=== PATIENT | female | born 1980 | race Caucasian/White ===

== ENCOUNTER 2021-10-28 23:33 | Emergency (ER) | payer BC | END 2021-10-29 01:27 | disposition home or self-care (01) | LOC: DL.ED 23:33 | DX: M25.572 Pain in left ankle and joints of left foot (principal); E03.9 Hypothyroidism, unspecified; Z88.1 Allergy status to other antibiotic agents; Z79.899 Other long term (current) drug therapy | CPT/HCPCS: 73610-LT; 99283 ==

== ENCOUNTER 2021-12-12 21:12 | Emergency (ER) | payer BC | END 2021-12-12 23:22 | disposition home or self-care (01) | LOC: DL.ED 21:12 | DX: M79.651 Pain in right thigh (principal); E03.9 Hypothyroidism, unspecified; Z88.6 Allergy status to analgesic agent; Z79.899 Other long term (current) drug therapy | CPT/HCPCS: 36415; 80053; 85025; 85379; 93971; 99283; 99284 ==

== ENCOUNTER 2023-08-28 16:00 | Emergency (ER) | payer BC ==
[2023-08-28] MEDS: Sodium Chloride 0.9% 1,000 ML IV ONE (16:42)
[2023-08-28] MEDS: Sodium Chloride 0.9% 10 ML Syringe FLUSH PRN (16:42)
[2023-08-28 16:47] LABS: BASOPHILS PERCENT AUTO 0.2 % (0.0-1.0); EOSINOPHILS PERCENT AUTO 0.6 % (1.0-3.0); HEMATOCRIT 43.5 % (37.0-47.0); HEMOGLOBIN 14.5 g/dL (12.0-16.0); LYMPHOCYTES PERCENT AUTO 29.7 % (20.5-50.1); MEAN CORPUSCULAR HEMOGLOBIN 29.1 pg (27.0-34.0); MEAN CORPUSCULAR HGB CONC 33.3 g/dL (33.0-35.0); MEAN CORPUSCULAR VOLUME 87.2 fL (80-100); MONOCYTES PERCENT AUTO 7.4 % (2-8); NEUTROPHILS PERCENT AUTO 62.1 % (42.2-75.2); PLATELET COUNT,PLT 286 10^3/uL (150-450); RED BLOOD CELL COUNT 4.99 10^6/uL (4.2-5.4); WHITE BLOOD CELL COUNT,WBC 8.1 10^3/uL (5.0-10.0)
[2023-08-28 17:02] LABS: LACTIC ACID 1.6 mmol/L (0.4-2.0)
[2023-08-28 17:07] LABS: A/G RATIO 0.9; ALANINE AMINOTRANSFERASE,ALT 18 U/L (14-59); ALBUMIN 3.8 g/dL (3.4-5.0); ALKALINE PHOSPHATASE 114 U/L (46-116); ANION GAP 11.7 mEq/L (7-13); ASPARTATE AMNIOTRANSFERASE,AST 13 U/L (15-37); BILIRUBIN TOTAL 0.3 mg/dL (0.2-1.0); BLOOD UREA NITROGEN,BUN 10 mg/dL (7-18); BUN/CREATININE RATIO 12.5 (No establ ref range); C-REACTIVE PROTEIN 0.57 ng/dL (<=0.50); CALCIUM 9.2 mg/dL (8.5-10.1); CARBON DIOXIDE,CO2 29 mmol/L (21-32); CHLORIDE,CL 106 mmol/L (98-107); EST CRCL DRUG DOSING (CG) 101.08 mL/min; GLUCOSE RANDOM 76 mg/dL (70-99); MAGNESIUM 2.2 mg/dL (1.8-2.4); POTASSIUM,K 3.7 mmol/L (3.5-5.1); PROTEIN TOTAL,TP 7.8 g/dL (6.4-8.2); PROTHROMBIN TIME 9.9 SEC (9.0-12.0); PTT,PARTIAL THROMBOPLSTIN TIME 25.7 SEC (22.0-34.0); SODIUM,NA 143 mmol/L (136-145); TSH ULTRASENSITIVE 0.66 uIU/mL (0.36-3.74)
[2023-08-28] MEDS: Meclizine 12.5 MG Tab PO ONE ×2 (17:26→18:12)
[2023-08-28] MEDS: Ketorolac 30 MG/ML SDV IVPUSH ONE (17:29)
[2023-08-28 17:59] LABS: ESTIMATED GFR 95 mL/min (>=60); ETHANOL BLOOD MEDICAL < 3 mg/dL (0)
== END 2023-08-28 18:20 | disposition home or self-care (01) ==
LOC: DL.ED 16:00
DX: R55 Syncope and collapse (principal); R51.9 Headache, unspecified; E03.9 Hypothyroidism, unspecified; Z88.6 Allergy status to analgesic agent; Z79.890 Hormone replacement therapy; Z79.899 Other long term (current) drug therapy
CPT/HCPCS: 36415; 70450; 80053; 80307; 82947; 83605; 83735; 84443; 84484; 85025; 85610; 85730; 86140; 87040; 93005; 93010; 96361; 96374; 99284; A9270; J1885; J7030; J3490